=== PATIENT | male | born 1955 | race Caucasian/White ===

== ENCOUNTER 2020-10-09 05:27 | Day surgery (SDC) | payer BC, OTHER ==
[2020-10-09] MEDS ORDERED: fentaNYL 100 MCG/2 ML SDV IV ONE ×4 (05:28→06:36)
[2020-10-09] MEDS ORDERED: Midazolam 1 MG/ML 2 ML SDV IV ONE ×7 (05:28→06:35)
[2020-10-09] MEDS ORDERED: Sodium Chloride 0.9% 10 ML Syringe FLUSH PRN (06:00)
[2020-10-09] MEDS ORDERED: Dextrose 5%-0.45% NaCl 1,000 ML IV SCH (06:00)
[2020-10-09] MEDS ORDERED: Midazolam 1 MG/ML 2 ML SDV ONE (06:08)
[2020-10-09] MEDS ORDERED: fentaNYL 100 MCG/2 ML SDV ONE (06:08)
--- NOTE | 2020-10-09 07:28 | OR ---
DATE: 10/09/2020 PROCEDURES: Total colonoscopy, NBI, and multiple cold snare polypectomies. INSTRUMENT USED: PCF-H190DL Olympus video colonoscope. PREMEDICATIONS: Fentanyl 125 mcg intravenous, Versed 4 mg intravenous, nasal O2 cannula. The procedure was done under pulse oximetry, BP recording, and manager cardiac cath. INDICATION: The patient with recent alteration in bowel habits and rectal bleeding. Colonoscopic examination is done for detection of any polypoid lesions and removal, endoscopic hemostasis therapy if needed. DESCRIPTION OF PROCEDURE: Initial rectal exam showed BPH. Rigid anoscopy showed small internal hemorrhoids without bleeding from them. The colonoscope was passed with ease up to the ileocecal area. Photographs were taken of the cecum showing 5 and 3 mm sized benign-appearing polyps, NBI views were obtained, photographs were taken, cold snare polypectomies were done, the tissues were retrieved and sent for histopathology. No bleeding was noted from any of the visualized areas at the commencement of the examination. The bowel preparation was found to be adequate, Harrison Scale 3 in all the regions, total score 9. No stricture. No vascular ectasia. No large isolated ulcerations seen. No evidence of diffuse inflammatory bowel disease in the form of friability, contact bleeding, or ulcerations. Probing the proximal sides of folds and flexures using adequate distention and clearing up the stool material, withdrawal of the scope was made. Diminutive benign-appearing polyps were noted in the distal descending colon and proximal sigmoid. Cold snare polypectomies were done. The tissues were retrieved and sent for histopathology. No bleeding was noted from any of the visualized areas at the completion of examination. IMPRESSION: 1. Internal hemorrhoids. 2. Multiple benign polyps. The patient tolerated the procedure well. [facility] /[id number]
[2020-10-09 09:30] VITALS: BP 105/71; PULSE 71
== END 2020-10-09 08:58 | disposition home or self-care (01) ==
LOC: DL.ENDO 05:27
PROVIDERS: ATTEND Internal Medicine Gastroenterology
DX: D12.0 Benign neoplasm of cecum (principal); K64.8 Other hemorrhoids; K63.5 Polyp of colon; K63.89 Other specified diseases of intestine; E66.09 Other obesity due to excess calories; E78.00 Pure hypercholesterolemia, unspecified; K21.9 Gastro-esophageal reflux disease without esophagitis; N40.0 Benign prostatic hyperplasia without lower urinary tract symptoms
CPT/HCPCS: 45385; J2250; J3010; J7042